=== PATIENT | male | born 1980 | race Hispanic/Latino ===

== ENCOUNTER 2019-12-17 17:42 | Observation (INO) | payer OTHER ==
[~2019-12-17] VITALS: Ht 170.2 cm; Wt 89.4 kg
[2019-12-17] MEDS ORDERED: LACTULOSE20 GM/30 M PO (18:41)
[2019-12-17] MEDS ORDERED: HYDROXYZINE HCL25 MG PO (18:43)
[2019-12-17] MEDS ORDERED: SODIUM CHLORIDE FLUSH 10 ML SYR INJ PRN (19:30)
--- NOTE | 2019-12-17 19:50 | NUR ---
Received patient via stretcher. AAOx4. Able to make needs known. Speaks Estonian but prefers [place]. Lt AC 20g clean dry and intact. Pt on a clear liquid diet. Resp even and unlabored. Skin warm and dry to touch. Ambulates without assistance. Orientated to room and call light. Bed in locked and low position. Call light in reach. Non skid socks applied.
--- NOTE | 2019-12-17 20:00 | NUR ---
PT TO BE ADMITTED AND TRANSFERRED, PT AND FAMILY AWARE OF POC, VITAL SIGNS STABLE, PT VOICES NO COMPLAINTS AT THIS TIME
--- NOTE | 2019-12-17 20:18 | NUR ---
[facility] CALLED FOR TRANSPORT 30 MIN ETA
[2019-12-17 21:50] VITALS: BP 101/58
[2019-12-17 22:00] VITALS: BP 101/58
[2019-12-17] MEDS ORDERED: PEG (High)/E-LYTE SOLN 4,000 ML BTL PO ONE ×2 (22:45→23:00)
--- NOTE | 2019-12-17 23:00 | NUR ---
Received new orders per Dr. Roldan: Type and Screen patient, [facility] Now, PT/PTT STAT, H&H STAT and Q6 hours and call with results.
[2019-12-17 23:30] LABS: HEMATOCRIT 27.3 % (38.2-49.6); HEMOGLOBIN 8.4 g/dL (14.0-18.0)
[2019-12-17 23:42] LABS: INR 1.08; PROTHROMBIN TIME 14.7 seconds (11.9-14.5)
[2019-12-18] VITALS (7 sets, daily range): BP systolic 96–116; BP diastolic 54–79
[2019-12-18] MEDS ORDERED: ONDANSETRON HCL INJ 2MG/ML 2ML 2 MG/ML VIAL IV STA (00:12)
[2019-12-18] MEDS ORDERED: ONDANSETRON HCL INJ 2MG/ML 2ML 2 MG/ML VIAL IV PRN (00:15)
--- NOTE | 2019-12-18 00:22 | NUR ---
Patient c/o nausea. New order per Dr. Roldan Zofran 4mg now and Q4hrs PRN N/V. Results to H&H and PT/PTT given. New order to cont to monitor h&h q6hrs, Give Vitamin K 20mg over 30 min IV piggyback.
[2019-12-18] MEDS ORDERED: PHYTONADIONE 10 MG/ML AMP IV ONE (00:30)
[2019-12-18] MEDS ORDERED: PHYTONADIONE 10MG/ML 20 MG in SODIUM CHLORIDE 0.9% 100 ML 100 ML IV ONE ×2 (00:45→01:00)
[2019-12-18] MEDS ORDERED: PHYTONADIONE 10MG/ML 1 ML ONE (00:49)
[2019-12-18] MEDS ORDERED: SODIUM CHLORIDE 0.9% 250ML 250 ML ONE (00:52)
[2019-12-18] MEDS ORDERED: SODIUM CHLORIDE 0.9% 50ML 100 ML ONE (00:58)
[2019-12-18 06:19] LABS: BASOPHILS # (AUTO) 0.1 (0.0-0.1); EOSINOPHILS # (AUTO) 0.3 (0.0-0.4); EOSINOPHILS % 5.1 % (0.0-6.0); HEMATOCRIT 27.3 % (38.2-49.6); HEMOGLOBIN 8.5 g/dL (14.0-18.0); LYMPHOCYTES # (AUTO) 1.8 (1.0-3.2); LYMPHOCYTES % 27.8 % (18.0-39.1); MEAN CORPUSCULAR HEMOGLOBIN 26.3 pg (28-32); MEAN CORPUSCULAR HGB CONC 31.1 g/dL (31-35); MEAN CORPUSCULAR VOLUME 84.5 fL (81-99); MONOCYTES # (AUTO) 0.6 (0.2-0.8); MONOCYTES % 8.9 % (4.4-11.3); NEUTROPHILS # (AUTO) 3.6 (2.1-6.9); PLATELET COUNT 273 x10e3/uL (140-360); RED BLOOD COUNT 3.23 x10e6/uL (4.3-5.7); RED CELL DISTRIBUTION WIDTH 13.2 % (11.7-14.4)
[2019-12-18 06:38] LABS: ALANINE AMINOTRANSFERASE 27 IU/L (0-55); ALBUMIN 3.4 g/dL (3.5-5.0); ALBUMIN/GLOBULIN RATIO 1.2 (0.8-2.0); ALKALINE PHOSPHATASE 76 IU/L (40-150); ANION GAP 9.2 mmol/L (8-16); BLOOD UREA NITROGEN 14 mg/dL (7-26); BUN/CREATININE RATIO 17 (6-25); CARBON DIOXIDE 23 mmol/L (22-29); CHLORIDE 110 mmol/L (98-107); CREATININE, SERUM 0.82 mg/dL (0.72-1.25); EST GLOMERULAR FILTRATION RATE > 60 ML/MIN (60-); GLUCOSE 96 mg/dL (74-118); POTASSIUM 4.2 mmol/L (3.5-5.1); SODIUM 138 mmol/L (136-145)
--- NOTE | 2019-12-18 07:00 | NUR ---
RECEIVED PATIENT RESTING IN BED NO S/S OF DISTRESS. BED LOW, WHEELS LOCKED, SIDE RAILS X2. CALL LIGHT IN REACH WILL CONTINUE TO MONITOR PATIENT.
[2019-12-18] MEDS: PANTOPRAZOLE 40 MG 10ML VIAL IV SCH (07:58)
--- NOTE | 2019-12-18 08:50 | NUR ---
Nutrition Screen Note RD Recommendation for Physician: -ADAT to Gi soft per MD. Plan of Care: RD following, monitoring for tolerance and adequacy Nutrition reason for involvement: (Nutrition Risk Trigger- MST) Primary Diagnose(s): GI bleed, Anemia PMH: Anemia Anxiety Ht: 67 in Wt: 198 lb BMI: 31.0 kg/m2 IBW:[address] Assessment: (12/17): 39 YOM admitted for GI bleed with PMH listed above. The pt was seen resting in bed, nurse at beside. The pt is going through bowel prep today, he is on clear liquids. The pt denied a poor appetite prior to admission as well any unintentional weight loss. He reported he had some N/V, but was given zofran. He denied chewing/swallowing issues as well as any food allergies. Pt had no other questions or concerns. Chart reviewed. Labs and meds reviewed. Will continue to monitor. Current Diet: clear liquids Malnutrition Evaluation (12/17) The patient does not meet criteria for a specified degree of malnutrition at this time. Will re-evaluate at follow-up as appropriate. Diet Education Needs Assessment: Diet education not indicated. Diet Adequacy: Not meeting calorie needs, Not meeting protein needs- pt is on clears Nutrition Care Level: 2-pt is on clear liquids Signed: Liz Guzman RD, PANCHO Addendum: 12/18/19 at 0902 by Liz Guzman DIET IBW: 148 lbs*
--- NOTE | 2019-12-18 09:30 | NUR ---
Pt unavailable at this time. Pt's physician at bedside. I will follow up as able. BLAYNE VASQUEZ Surgery Scheduler Spiritual Care Department O: [phone]
[2019-12-18] MEDS ORDERED: PANTOPRAZOLE SO40 MG PO (09:37)
[2019-12-18] MEDS ORDERED: ASCORBIC ACID500 MG PO (09:37)
[2019-12-18] MEDS ORDERED: FERROUS SULFAT325 MG PO (09:37)
[2019-12-18] MEDS ORDERED: MELATONIN 5 MG TABLET PO PRN (10:00)
[2019-12-18] MEDS ORDERED: HYDRALAZINE HCL 20 MG/ML VIAL IV PRN (10:00)
--- NOTE | 2019-12-18 11:30 | NUR ---
PATIENT LEFT FOR COLONOSCOPY AT THIS TIME.
--- NOTE | 2019-12-18 13:10 | NUR ---
PATIENT BACK FROM COLONOSCOPY AT THIS TIME IN STABLE CONDITION. CALL LIGHT IN REACH WILL CONTINUE TO MONITOR PATIENT.
--- NOTE | 2019-12-18 13:20 | Operative Report ---
DATE OF PROCEDURE: 12/18/2019 SURGEON: Mahesh Roldan MD PROCEDURE PERFORMED: Colonoscopy. INDICATIONS FOR COLONOSCOPY: Rectal bleeding, anemia. MEDICATIONS: The patient was done under MAC, please see anesthesiologist's note. PROCEDURE IN DETAIL: With the patient in the left lateral decubitus position, a flexible fiberoptic Olympus colonoscope was inserted into the rectum with ease and advanced all the way to the cecum. Prep overall was suboptimal with scattered retained stool in the colon. The scope was then withdrawn slowly, and whatever was visualized in the mucosa overlying the cecum, ascending, transverse, descending, sigmoid, and rectum grossly appeared to be within normal limits. The scope was then retroflexed into the distal rectum and small internal hemorrhoids were noted, none of which was actively bleeding. The scope was then straightened out. It was subsequently withdrawn. The patient tolerated the procedure well. IMPRESSION: 1. Suboptimal prep. 2. Internal hemorrhoids. PLAN: Follow hemoglobin and hematocrit. Initiate Anusol-HC suppositories b.i.d. The patient might benefit from a repeat colonoscopy after a better prep. Mahesh Roldan MD [facility] [place] /[id number] cc: Bud Gonzales MD
[2019-12-18] MEDS ORDERED: ANUCORT-HC25 MG RC (13:26)
[2019-12-18 13:47] LABS: HEMOGLOBIN 8.8 g/dL (14.0-18.0)
[2019-12-18] MEDS ORDERED: LIDOCAINE HCL 2% LOCAL INJ 5 ML SDV VIAL INJ ONE (14:11)
[2019-12-18] MEDS ORDERED: PROPOFOL IV EMULSION 10 MG/ML 50 ML VIAL ONE (14:11)
[2019-12-18] MEDS ORDERED: FENTANYL CITRATE/PF 100MCG/2 ML INJ ONE (14:38)
[2019-12-18] MEDS ORDERED: MIDAZOLAM HCL 2 MG/2 ML VIAL ONE (14:38)
--- NOTE | 2019-12-18 16:00 | NUR ---
GAVE PACKET OF INFORMATION WITH [facility] [employer] FOR ASSISTANCE WITH LOW TO NO INCOME TO PATIENT. RESOURCES THAT PATIENT MAY BE ABLE TO FOLLOW UP UPON DISCHARGE. PT EDUCATED ON EACH RESOURCE AND UNDERSTANDING HOW TO FOLLOW UP TO SEE IF QUALIFIED FOR EACH RESOURCE.
--- NOTE | 2019-12-18 16:46 | NUR ---
PATIENT LEFT TO NUCLEAR MEDICINE AT THIS TIME VIA WHEELCHAIR IN STABLE CONDITION.
[2019-12-18] MEDS ORDERED: HYDROCORTISONE ACETATE 25 MG/SUPP.RECT SUPP RC SCH (17:00)
--- NOTE | 2019-12-18 18:24 | NUR ---
PATIENT BACK FROM NUCLEAR MEDICINE AT THIS TIME.
[2019-12-18 18:54] LABS: HEMOGLOBIN 9.8 g/dL (14.0-18.0)
--- NOTE | 2019-12-18 21:31 | Diagnostic Imaging Report ---
Meckel's Scan Reason for exam: Gastrointestinal bleeding; anemia. Inconclusive colonoscopy. Radiopharmaceutical: Tc-99m pertechnetate 10.4 mCi IV Report: After administration of the radiopharmaceutical, dynamic images of the abdomen in the anterior projection were obtained through 60 minutes. Distribution of tracer activity appears physiologic throughout the abdomen. No focal abnormality is identified nor is there any focal uptake of tracer that appears to intensify over time. Impression: No scan evidence of ectopic gastric mucosa. Signed by: Dr. Ginger Gimenez M.D. on 12/18/2019 9:28 PM
[2019-12-19] VITALS: BP 100/55
[2019-12-19 04:00] VITALS: BP 105/54
[2019-12-19 06:39] LABS: BASOPHILS % 0.5 % (0.0-1.0); EOSINOPHILS # (AUTO) 0.1 (0.0-0.4); EOSINOPHILS % 1.8 % (0.0-6.0); HEMOGLOBIN 8.6 g/dL (14.0-18.0); LYMPHOCYTES # (AUTO) 1.7 (1.0-3.2); LYMPHOCYTES % 23.2 % (18.0-39.1); MEAN CORPUSCULAR HEMOGLOBIN 25.9 pg (28-32); MEAN CORPUSCULAR HGB CONC 30.7 g/dL (31-35); MEAN CORPUSCULAR VOLUME 84.3 fL (81-99); MONOCYTES # (AUTO) 0.5 (0.2-0.8); MONOCYTES % 6.9 % (4.4-11.3); NEUTROPHILS # (AUTO) 4.9 (2.1-6.9); NEUTROPHILS % 67.2 % (38.7-80.0); PLATELET COUNT 267 x10e3/uL (140-360); RED BLOOD COUNT 3.32 x10e6/uL (4.3-5.7); RED CELL DISTRIBUTION WIDTH 13.2 % (11.7-14.4)
[2019-12-19 08:07] VITALS: BP 104/56
[2019-12-19] MEDS ORDERED: HYDROCORTISONE ACETATE 25 MG/SUPP.RECT SUPP RC SCH (09:00)
[2019-12-19 09:17] VITALS: BP 104/56
[2019-12-19] MEDS: PANTOPRAZOLE 40 MG 10ML VIAL IV SCH (09:30)
--- NOTE | 2019-12-19 09:39 | NUR ---
TELEPHONED MD Stas JOHN TO CLARIFY QUESTIONS FROM PT, AWAITING CALL BACK
[2019-12-19] MEDS ORDERED: ANUSOL-HC25 MG RC (10:22)
--- NOTE | 2019-12-19 11:16 | NUR ---
RENETTA RERECORDING MIXER WITH MD POLANCO INTO SEE PT, DISCUSSED POC AND DISCHARGE INSTRUCTIONS, VERBALIZED UNDERSTANDING, AWAITING RIDE FOR DISCHARGE
--- NOTE | 2019-12-19 11:29 | NUR ---
PT AMBULATED OFF UNIT FOR DISCHARGE, NO CHANGE IN CONDITION, PCT AT SIDE
--- NOTE | 2019-12-22 05:33 | Discharge Summary ---
ADMISSION DIAGNOSES: Acute blood loss anemia secondary to gastrointestinal bleed and obesity with a BMI of 31. DISCHARGE DIAGNOSES: Acute blood loss anemia secondary to gastrointestinal bleed, obesity with a BMI of 31, gastrointestinal bleed due to internal hemorrhoids. HISTORY: Lower back pain with NSAID use, hemorrhoid. SURGICAL HISTORY: Hemorrhoidectomy. FAMILY HISTORY: Noncontributory. SOCIAL HISTORY: Occasional alcohol and tobacco use. HOSPITAL COURSE: A 39-year-old male admits with complaints of rectal bleeding for one month. The blood is bright red and occurs with each bowel movement. He came to the ER, when he began having nausea and vomiting with associated dizziness. He says these symptoms were similar to what had occurred with previous hemorrhoid. On admission, the hemoglobin was 8.5. GI was consulted. The patient was started on Protonix, iron, and vitamin C. The patient had a colonoscopy, which showed internal hemorrhoids, but due to suboptimal prep, GI would recommend doing another colonoscopy in the next couple of weeks. The patient also had a Meckel scan per GI recommendation, the scan showed no evidence of ectopic gastric mucosa. The patient was cleared for discharge home per Gastroenterology if hemoglobin remained stable. He was discharged home with new prescription for vitamin C, iron, Protonix, and Anusol. He was instructed to follow up with GI in 1 to 2 weeks and primary care in 1 to 2 weeks. The patient understands discharge instructions and agrees to the plan. He was also advised to limit if not discontinue NSAID use and if he does continue to take it, make sure he eats with the medication. Dictated by Lupis Rebolledo NP Bud Gonzales MD [facility] /[id number]
== END 2019-12-19 11:28 | disposition home or self-care (01) ==
LOC: FSED 17:42 → ERHOLD 19:41 → MED/SURG 22:02
PROVIDERS: ADMIT Internal Medicine; ATTEND Internal Medicine
DX: K64.4 Residual hemorrhoidal skin tags (principal); D62 Acute posthemorrhagic anemia; K92.2 Gastrointestinal hemorrhage, unspecified; E66.9 Obesity, unspecified; Z68.30 Body mass index [BMI] 30.0-30.9, adult
CPT/HCPCS: 36415 ×3; 45378; 78290; 80048; 80053; 82948; 85014 ×2; 85018 ×2; 85025 ×3; 85610; 85730 ×2; 86850; 86900; 99284; A9512; C9113 ×2; G0378 ×3; J2001; J2250; J2405; J2704; J3010; J3430; J7050

== ENCOUNTER 2020-12-27 13:50 | Emergency (ER) | payer OTHER ==
[~2020-12-27] VITALS: Ht 170.2 cm; Wt 90.0 kg
[~2020-12-27 13:50] MED LIST: ANUCORT-HC25 MG RC; ANUSOL-HC25 MG RC; ASCORBIC ACID500 MG PO; FERROUS SULFAT325 MG PO; HYDROXYZINE HCL25 MG PO; LACTULOSE20 GM/30 M PO; PANTOPRAZOLE SO40 MG PO
[2020-12-27] MEDS ORDERED: ANUSOL-HC25 MG RC (16:27)
[2020-12-27] MEDS ORDERED: PANTOPRAZOLE SO40 MG PO (16:29)
[2020-12-27 16:57] VITALS: BP 116/78
== END 2020-12-27 16:53 | disposition home or self-care (01) ==
LOC: FSED 14:15
DX: D64.9 Anemia, unspecified (principal); K62.5 Hemorrhage of anus and rectum; K64.9 Unspecified hemorrhoids; R53.83 Other fatigue; N40.0 Benign prostatic hyperplasia without lower urinary tract symptoms; F41.9 Anxiety disorder, unspecified
CPT/HCPCS: 80048; 82270; 85025; 99283

== ENCOUNTER 2022-04-22 02:24 | Inpatient (IN) | payer SELFPAY ==
[~2022-04-22] VITALS: Ht 170.2 cm; Wt 90.7 kg
[~2022-04-22 02:24] MED LIST changes: +METHOCARBAMOL500 MG PO; +NAPROSYN500 MG PO
[2022-04-22] MEDS ORDERED: SODIUM CHLORIDE 0.9% 1000ML 1,000 ML IV STA (02:54)
[2022-04-22] MEDS ORDERED: FAMOTIDINE 20 MG/2 ML VIAL IV ONE ×2 (03:00→03:32)
[2022-04-22] MEDS ORDERED: ONDANSETRON HCL INJ 2MG/ML 2ML 2 MG/ML VIAL IV ONE (03:00)
[2022-04-22] MEDS ORDERED: IOPAMIDOL 370 MG/ML 100 ML INFUS..BTL INJ ONE (03:25)
[2022-04-22] MEDS ORDERED: SODIUM CHLORIDE 0.9% 1000ML 1,000 ML ONE ×2 (03:32→05:05)
[2022-04-22] MEDS ORDERED: ONDANSETRON HCL INJ 2MG/ML 2ML 2 MG/ML VIAL ONE ×2 (03:32→14:50)
[2022-04-22] MEDS ORDERED: Morphine 4mg INJECTION 4 MG/ML INJ IV PRN (04:15)
[2022-04-22] MEDS ORDERED: DIPHENHYDRAMINE HCL INJ 50 MG/ML VIAL IV PRN (04:15)
[2022-04-22] MEDS: SODIUM CHLORIDE 0.9% 1000ML 1,000 ML IV SCH ×3 (05:00→20:15)
[2022-04-22] MEDS ORDERED: PIPERACILLIN/TAZOBACTAM 3.375 GM VIAL ONE (05:05)
[2022-04-22 05:23] LABS: INR 1.12; PARTIAL THROMBOPLASTIN TIME 29.5 seconds (23.8-35.5); PROTHROMBIN TIME 15.4 seconds (11.9-14.5)
[2022-04-22] MEDS ORDERED: ACETAMINOPHEN 325 MG TAB PO ONE (06:15)
[2022-04-22] MEDS ORDERED: ONDANSETRON HCL INJ 2MG/ML 2ML 2 MG/ML VIAL IV PRN (07:00)
[2022-04-22] MEDS: FAMOTIDINE 20 MG/2 ML VIAL IV SCH ×2 (09:11→17:48)
[2022-04-22] MEDS ORDERED: MIDAZOLAM HCL 2 MG/2 ML VIAL ONE (11:10)
[2022-04-22] MEDS ORDERED: FENTANYL CITRATE/PF 100MCG/2 ML INJ ONE ×2 (11:10→12:44)
[2022-04-22] MEDS ORDERED: BUPIVACAINE 0.25% 30ML SDV ONE (11:44)
[2022-04-22] MEDS ORDERED: LIDOCAINE 1% W/EPINEPHRINE 20 ML VIAL ONE (11:44)
[2022-04-22] MEDS ORDERED: SODIUM CHLORIDE 0.9% 0 ML ONE (11:45)
[2022-04-22 13:43] VITALS: BP 100/60
[2022-04-22 14:05] VITALS: BP 100/60
[2022-04-22] MEDS ORDERED: POVIDONE IODINE 0.05% 0.05 % ML PO ONE (14:50)
[2022-04-22] MEDS ORDERED: DEXAMETHASONE SOD PHOS INJ 4 MG/ML SDV ONE (14:50)
[2022-04-22] MEDS ORDERED: KETOROLAC TROMETHAMINE 30 MG/ML VIAL ONE (14:50)
[2022-04-22] MEDS ORDERED: NEOSTIGMINE 1 MG/ML 10ML VIAL ONE (14:50)
[2022-04-22] MEDS ORDERED: ROCURONIUM BROMIDE 10 MG/ML 5ML VIAL IV ONE (14:50)
[2022-04-22] MEDS ORDERED: ATROPINE SULFATE 1 MG/ML VIAL ONE (14:50)
[2022-04-22] MEDS ORDERED: PROPOFOL IV EMULSION 10 MG/ML 20 ML VIAL ONE (14:50)
[2022-04-22 16:18] VITALS: BP 111/64
[2022-04-22 19:55] VITALS: BP 104/55
[2022-04-22 20:00] VITALS: BP 104/55
[2022-04-23] VITALS: BP 106/62
[2022-04-23 04:00] VITALS: BP 113/61
[2022-04-23 07:57] LABS: BASOPHILS # (AUTO) 0.1 (0.0-0.1); BASOPHILS % 0.2 % (0.0-1.0); HEMATOCRIT 27.2 % (38.2-49.6); HEMOGLOBIN 7.2 g/dL (14.0-18.0); LYMPHOCYTES % 4.6 % (18.0-39.1); MEAN CORPUSCULAR HEMOGLOBIN 16.4 pg (28-32); MEAN CORPUSCULAR HGB CONC 26.5 g/dL (31-35); MEAN CORPUSCULAR VOLUME 61.8 fL (81-99); MONOCYTES # (AUTO) 1.5 (0.2-0.8); MONOCYTES % 6.7 % (4.4-11.3); NEUTROPHILS # (AUTO) 19.8 (2.1-6.9); NEUTROPHILS % 87.4 % (38.7-80.0); PLATELET COUNT 198 x10e3/uL (140-360); RED CELL DISTRIBUTION WIDTH 21.2 % (11.7-14.4)
[2022-04-23 08:04] VITALS: BP 95/59
[2022-04-23 08:36] LABS: ANION GAP 12.9 mmol/L (8-16); CALCIUM 7.6 mg/dL (8.4-10.2); CREATININE, SERUM 0.77 mg/dL (0.72-1.25); POTASSIUM 3.9 mmol/L (3.5-5.1)
[2022-04-23 09:00] VITALS: BP 95/59
[2022-04-23] MEDS: FAMOTIDINE 20 MG/2 ML VIAL IV SCH (09:55)
[2022-04-23 10:33] LABS: HYPOCHROMASIA MODERATE; LYMPHOCYTES % (MANUAL) 4 % (19-48); METAMYELOCYTES % (MANUAL) 1 % (0-0); MICROCYTOSIS SLIGHT; MONOCYTES % (MANUAL) 3 % (3.4-9.0); NEUTROPHILS % (MANUAL) 90 % (40-74); PLATELET ESTIMATE ADEQUATE; PLATELET MORPHOLOGY COMMENT FEW LARGE
[2022-04-23] MEDS ORDERED: Tylenol #3 PO (11:00)
== END 2022-04-23 11:30 | disposition home or self-care (01) | DRG 343 ==
LOC: FSED 02:43 → ERHOLD 04:15 → MED/SURG2 13:17
PROVIDERS: ADMIT Family Medicine; ATTEND Family Medicine
PROC: 0DTJ4ZZ Resection of Appendix, Percutaneous Endoscopic Approach (ICD-10-PCS; principal; 2022-04-22 11:00)
DX: K35.80 Unspecified acute appendicitis (principal); Z20.822 Contact with and (suspected) exposure to COVID-19; D64.9 Anemia, unspecified
CPT/HCPCS: 36415; 74177; 80048; 80053; 81003; 83605; 85025; 85610; 85730; 87040; 88304; 96361; 96374; 96376; 99284; J0461; J0690; J1100; J1885; J2250; J2270; J2405; J2543; J2710; J3010; J7030; J7050; Q9967

== ENCOUNTER 2022-08-24 12:29 | Emergency (ER) | payer SELFPAY ==
[~2022-08-24] VITALS: Ht 167.6 cm; Wt 88.5 kg
[~2022-08-24 12:29] MED LIST changes: +Tylenol #3 PO
[2022-08-24] MEDS ORDERED: COLACE100 M1 PO (13:33)
== END 2022-08-24 13:41 | disposition home or self-care (01) ==
LOC: FSED 12:45
DX: K64.5 Perianal venous thrombosis (principal); D64.9 Anemia, unspecified; M54.50 Low back pain, unspecified; G89.29 Other chronic pain
CPT/HCPCS: 99282

== ENCOUNTER 2024-11-04 19:05 | Emergency (ER) | payer SELFPAY ==
[~2024-11-04] VITALS: Ht 167.6 cm; Wt 98.0 kg
[~2024-11-04 19:05] MED LIST changes: +COLACE100 M1 PO
[2024-11-04 19:14] VITALS: PULSE 78; RESP 18; TEMP 98
[2024-11-04] MEDS ORDERED: IBUPROFEN800 MG PO (21:43)
[2024-11-04 21:45] VITALS: BP 130/79; PULSE 78; RESP 18; TEMP 98; O2SAT 98
== END 2024-11-04 21:45 | disposition home or self-care (01) ==
LOC: FSED 19:18
DX: M25.562 Pain in left knee (principal); M17.12 Unilateral primary osteoarthritis, left knee; M54.50 Low back pain, unspecified; G89.29 Other chronic pain
CPT/HCPCS: 99282